=== PATIENT | female | born 1980 | race Caucasian/White ===

== ENCOUNTER 2019-06-09 16:18 | Inpatient (IN) ==
[2019-06-09] MEDS ORDERED: cefTRIAXone SODIUM 1,000 MG/50 ML BAG IV STA (17:12)
[2019-06-09 17:49] LABS: Basophils # (auto) 0.05 K/uL (0-0.2); Basophils % (auto) 0.6 %; Eosinophils # (auto) 0.23 K/uL (0-0.5); Eosinophils % (auto) 2.8 %; Hematocrit (blood only) 35.2 % (37-47); Hemoglobin 12.3 g/dL (12.0-16.0); Immature Granulocytes # (auto) 0.03 K/uL (0.00-0.02); Immature Granulocytes % (auto) 0.4 %; Lymphocytes # (auto) 1.47 K/uL (1.2-3.4); Lymphocytes % (auto) 18.2 %; Mean Corpuscular Hgb Conc 34.9 g/dL (32-36); Mean Corpuscular Volume 81.1 fL (80-100); Mean Platelet Volume 10.8 fL (7.4-10.4); Monocytes # (auto) 0.37 K/uL (0.11-0.59); Monocytes % (auto) 4.6 %; Neutrophils # (auto) 5.94 K/uL (1.4-6.5); Neutrophils % (auto) 73.4 %; Platelet Count 245 K/uL (130-400); RDW Coefficient of Variation 14.4 % (11.5-14.5); RDW Standard Deviation 42.9 fL (36.4-46.3); Red Blood Count 4.34 M/uL (4.2-5.4); White Blood Count 8.09 K/uL (4.8-10.8)
[2019-06-09 18:06] LABS: Albumin Level 3.8 gm/dl (3.4-5.0); BUN Creatinine Ratio 12.8 (10-20); Creatinine Clr Calc Pharmacy 63.7 ml/min; Est GFR (African American) 93.4; Est GFR (Non-African American) 80.6; Potassium 3.3 mmol/L (3.5-5.1)
[2019-06-09 18:08] LABS: Albumin Globulin Ratio 0.9 (0.9-2); Bilirubin,Total 0.3 mg/dl (0.2-1); Globulin 4.3 gm/dl (2.5-4.0); Total Protein 8.1 gm/dl (6.4-8.2)
[2019-06-09] MEDS ORDERED: POTASSIUM CHLORIDE 20 MEQ TABCR PO STA (19:49)
[2019-06-09] MEDS ORDERED: cefTRIAXone SODIUM 1000MG/50ML D5W IV ONE ×2 (20:04→21:14)
[2019-06-09] MEDS: SODIUM CHLORIDE 0.9% 1000ML 1,000 ML IV SCH ×2 (20:06→20:11)
--- NOTE | 2019-06-09 20:30 | History & Physical Report ---
Date of Service June 09, 2019 Assessment & Plan (1) Cellulitis: This is a 38-year-old female with PMH of PTSD and ADD who presents with rash on left upper back and was found to have cellulitis. -Completed 7 day course of Valtrex and Bactrim prior to arrival -Rash does not have vesicular appearance consistent with shingles -Was started on Rocephin in the ED -Please see Dr. Braswell's addendum for further assessment/ plan details (2) Anxiety: Denies PMH of anxiety but endorses PTSD, ADD -Please see Dr. Braswell's addendum for further assessment/ plan details History of Present Illness Chief Complaint: Rash, pain Primary Care Provider: NO PCP This is a 38-year-old female with PMH of PTSD and ADD who presents with rash on left upper back. Patient lives in [place] and was in the process of hitchhiking to [place] but developed worsening pain and subjective fever along the way and was dropped off at [facility]. Patient states she was diagnosed with shingles and a skin infection last week and was prescribed Valtrex and Bactrim. She took 7 of 14 days of both medications but is no longer taking them. Did not bring them with her today. Feels very anxious, has been trying to get a hold of back in [place] who is not answering phone. Is tearful and frustrated and is in a lot of pain from her rash. Does not take any home medications at this time. Feels warm and has chills. Rash on left upper back is painful and itchy. Denies any lightheadedness, visual changes, chest pain, palpitations, shortness of breath, nausea, vomiting, abdominal pain, dysuria, diarrhea or constipation. Patient denies history of anxiety. Denies any suicidal ideation or auditory/visual hallucinations. Denies alcohol or drug use. Quit smoking cigarettes 1 week ago. Allergies Allergy/AdvReac Type Severity Reaction Status Date / Time No Known Allergies Allergy Verified 06/09/19 18:01 Home Medications Home Medications Medication Instructions Recorded Confirmed Type acetaminophen [Tylenol Extra 500 - 1,000 mg PO DIRECTED PRN 06/09/19 06/09/19 History Strength] sulfamethoxazole-trimethoprim 1 tab PO DIRECTED 06/09/19 06/09/19 History [Bactrim DS] valacyclovir [Valtrex] 0 mg PO DIRECTED 06/09/19 06/09/19 History Past Med/Surg History Medical History ADD (attention deficit disorder) (Chronic) PTSD (post-traumatic stress disorder) (Chronic) Surgical History H/O section (Chronic) Family History Other Family history unknown Social History Preferred Language: Citizen Of [place] Communication Ability: Effective Extension Course Counselor Required: No Beliefs That Will Affect Care: None Current Living Situation: Spouse Current Living Situation Comment: lives with and his father, she states she has no other family Other Information That Helps Us Care for You: No Feels Safe at Home: Yes Safety Concerns: Afraid for Self Smoking Status: Former smoker Tobacco Type: cigarettes Do You Dip or Chew Tobacco: No Smoking End Date: quit 1 week ago Second Hand Exposure: Yes Tobacco Cessation Education Requested by Patient: No Hx Alcohol Use: Yes Alcohol type: beer Hx Substance Use: No Review of Systems Review of Systems: At least ten systems reviewed and negative except as noted in the HPI. Physical Exam Physical Exam: General Appearance: WD/WN, poorly groomed, very anxious and tearful Head: normocephalic, atraumatic Eyes: normal inspection, PERRL, EOMI ENT: hearing grossly normal, pharynx normal (dry mucous membranes) Neck: supple, no JVD, no adenopathy Respiratory/Chest: lungs clear to auscultation. No wheezes, rales or rhonci. No respiratory distress or accessory muscle use Cardiovascular: tachycardic, regular rhythm, no murmur, normal peripheral pulses, no BLE edema Abdomen/GI: normal bowel sounds, soft, non-tender to palpation Extremities/Musculoskelatal: Dime-sized lesion with overlying scab on left upper back, near medial scapula border with erythema and warmth extending to posterior neck and anteriorly to clavicle. No calf tenderness, normal capillary refill Neurologic/Psych: alert & oriented x 3, anxious, mood alternating from anxious and tearful to angry. During interview, patient removed her gown multiple times and punched herself in the side of head Skin: normal color, warm/dry, see above for further details Results & Data Vital Signs (Past 12 Hours) Vital Signs Temp Pulse Pulse Resp BP BP Pulse Ox 06/09/19 18:20 110 H 23 136/76 99 06/09/19 16:23 36.5 C 102 H 18 134/72 98 Laboratory Results Short CBC 06/09/19 Range/Units 17:39 WBC 8.09 (4.8-10.8) K/uL Hgb 12.3 (12.0-16.0) g/dL Hct 35.2 L (37-47) % Plt Count 245 (130-400) K/uL BMP 06/09/19 17:39 Sodium 135 L Potassium 3.3 L Chloride 101 Carbon Dioxide 25 BUN 12 Creatinine 0.91 Glucose 106 H Calcium 9.0 Liver Function 06/09/19 Range/Units 17:39 Total Bilirubin 0.3 (0.2-1) mg/dl AST 38 H (15-37) U/L ALT 47 (12-78) U/L Alkaline Phosphatase 137 H (45-117) U/L Albumin 3.8 (3.4-5.0) gm/dl Supervising Physician Co-Signing Physician Notes IM ATTENDING : Patient seen and examined. History obtained from patient . Preceding documentation by Ms. Aliyah Hart PA-C reviewed. In addition, patient gives history of possible tick exposure/bite from [place]. Patient complaining of headache, neck pain symptoms. No recent trauma as per patient. Patient very paranoid during exam. Speech/thoughts somewhat rambling and repetitive. Lyme screen IgM was positive. FINAL ASSESSMENT AND PLAN as follows : Possible Lyme meningitis No overt sepsis for now. Hypokalemia Past tobacco abuse Medical telemetry given tachycardia Diagnostic LP (patient refusing until her from [place] is contacted.) IV Ceftriaxone for now for presumptive Lyme meningitis. ID consult RE possible Lyme meningitis Replace potassium, check magnesium Social service to assist in contacting patient's family. DVT prophylaxis Lovenox subcu Full code
[2019-06-09 20:42] LABS: Lyme Ab IgG w/WB Rflx Negative (Negative)
[2019-06-09 20:47] LABS: Lyme Ab IgM w/WB Rflx Positive (Negative)
[2019-06-09] MEDS ORDERED: LORazepam 1 MG TAB SL STA (20:49)
[2019-06-09] MEDS ORDERED: cefTRIAXone SODIUM 2,000 MG/70 ML BAG IV STA (20:52)
[2019-06-09] MEDS ORDERED: cefTRIAXone SODIUM 1,000 MG in DEXTROSE 5% 50 ML IV STA (20:55)
[2019-06-09] MEDS ORDERED: KETOROLAC TROMETHAMINE 15 MG/ML VIAL IV ONE (20:56)
--- NOTE | 2019-06-09 21:22 | Emergency Department Note ---
Entered by Cj Johnson acting as a scribe for Nic Chakraborty DO History of Present Illness General Chief complaint: Mental Health Evaluation Stated complaint: SHINGLES, INFECTED AREA ON LEFT SHOULDER Source: patient History of Present Illness Provider complaint: Infection Onset (ago): day(s) 9 Location: back Radiation: non-radiation Pain Consistency: + constant and + other (Worsening) Maximum Pain Intensity: 9 Current Pain Intensity: 9 Relieved By: + none Exacerbated By: + none Associated symptoms: + rash and + shortness of breath The patient is a 38 year old female who presents to the Emergency Room with complaints of a worsening infection on her back that started about 9 days ago. She notes that the area is painful and she rates the pain as a 9/10. The patient states the rash started on her back and the redness has been increasing. The patient reports that she went to the hospital in [place], where she is from, and was diagnosed with shingles with a secondary infection. She was discharged with Bactrim and Valtrex. The patient is also complaining of shortness of breath, but does note she is a smoker. She denies any fevers, nausea, vomiting, diarrhea, or chest pain. The patient denies any past medical history. Denies any suicidal homicidal ideations. No auditory visual hallucinations. Home Medications Home Medications Medication Instructions Recorded Confirmed Type acetaminophen [Tylenol Extra 500 - 1,000 mg PO DIRECTED PRN 06/09/19 06/09/19 History Strength] sulfamethoxazole-trimethoprim 1 tab PO DIRECTED 06/09/19 06/09/19 History [Bactrim DS] valacyclovir [Valtrex] 0 mg PO DIRECTED 06/09/19 06/09/19 History Allergies Allergy/AdvReac Type Severity Reaction Status Date / Time No Known Allergies Allergy Verified 06/09/19 18:01 Past Med/Surg History Medical History ADD (attention deficit disorder) (Chronic) PTSD (post-traumatic stress disorder) (Chronic) Surgical History H/O section (Chronic) Family History Other Family history unknown Social History Feels Safe at Home: Yes Smoking Status: Former smoker Smoking End Date: quit 1 week ago Hx Alcohol Use: No Hx Substance Use: No Review of Systems See HPI for pertinent positives & negatives. and A total of 10 systems reviewed and were otherwise negative Physical Exam Vital Signs Vital Signs - 24 hr 06/09/19 16:23 06/09/19 18:20 Temperature 36.5 C Temperature Source Oral Sepsis Recent Fever Within 48 Hours No Sepsis Action Taken by Nursing No Action Required Pulse Rate 102 H Pulse Rate [Finger] 110 H Respiratory Rate 18 23 Respiratory Effort / Characteristics Non-Labored Spontaneous Respiratory Depth Normal Blood Pressure 134/72 Blood Pressure [Right Arm] 136/76 Blood Pressure Mean 92 Blood Pressure Mean [Right Arm] 96 Blood Pressure Position Sitting Pulse Oximetry 98 99 GENERAL: Sitting up in bed, alert, well appearing, well-nourished, no distress, non-toxic EYE EXAM: normal conjunctiva. OROPHARYNX: no exudate, no erythema, lips, buccal mucosa, and tongue normal and mucous membranes are moist NECK: supple, no nuchal rigidity, no adenopathy, non-tender LUNGS: Clear to auscultation. Normal chest wall mechanics HEART: no murmurs, S1 normal and S2 normal ABDOMEN: abdomen soft, non-tender, normo-active bowel, sounds, no masses, no rebound or guarding. BACK: Back is symmetrical on inspection and there is no deformity, no midline tenderness, no CVA tenderness. SKIN: No bruising. 27cm x 26cm area of erythema that tracks from her left distal clavicle just below the scapula. Central area is a 2 x 2cm scab with no induration. UPPER EXTREMITIES: upper extremities are grossly normal. LOWER EXTREMITIES: No pitting edema. NEURO EXAM: Normal sensorium, cranial nerves II-XII grossly intact, normal speech, no gross weakness of arms, no gross weakness of legs. Course ED COURSE: Vital signs were reviewed and showed mild tachycardia. The patients medical record was reviewed The above diagnostic studies were performed and reviewed. ED treatments and interventions as stated above. 170: The patient was evaluated in room B04B. A complete history and physical examination was performed. 1899: Upon reevaluation, the patient is resting in bed. I discussed my findings with the patient and she understands and agrees with the treatment plan. 1916: I spoke to Ashtyn Davis PAC under Dr. Michaelle Garcias about the patient's case. They will be accepting the patient for further evaluation. Based on the patients age, coexisting illnesses, exam and lab findings the decision to treat as an inpatient was made. The patient remained stable while under my care. The patient will be evaluated for further management. Consultations Consultation #1: I spoke to Ashtyn Davis PAC under Dr. Michaelle Garcias about the patient's case. They will be accepting the patient for further evaluation. Time: 19:17 Administered Medications Discontinued Medications Ceftriaxone Sodium (Rocephin) Confirm Administered Dose 1,000 mg IV .STK-MED ONE Stop: 06/09/19 20:05 Last Admin: 06/09/19 20:06 Dose: 1,000 mg Documented by: [id number] Ceftriaxone Sodium (Rocephin) 1,000 mg in 50 mls @ 100 mls/hr IV NOW STA Stop: 06/09/19 17:41 Last Admin: 06/09/19 20:06 Dose: Not Given Documented by: [id number] Sodium Chloride (Nss 1000ml) 1,000 mls @ 999 mls/hr IV .Q1H1M MOHAMUD Stop: 06/09/19 19:15 Last Admin: 06/09/19 20:11 Dose: Not Given Documented by: [id number] Admin: 06/09/19 20:06 Dose: Not Given Documented by: [id number] Potassium Chloride (Klor-Con M20) 40 meq PO NOW STA Stop: 06/09/19 19:50 Last Admin: 06/09/19 21:02 Dose: Not Given Documented by: [id number] Medical Decision Making Differential Diagnosis Differential diagnosis includes etiologies such as cellulitis, abscess, MRSA infection, DVT, necrotizing fasciitis, dermatitis, drug eruption, as well as others were entertained. Medical Records Attestation: I reviewed the patient's medical records. Home Medications Current Medication List: was personally reviewed by me Laboratory Data Attestation: I reviewed the patient's lab results. Result diagrams: 06/09/19 17:39 06/09/19 17:39 Lab Results 06/09/19 06/09/19 06/09/19 Range/Units 17:39 17:39 17:39 WBC 8.09 (4.8-10.8) K/uL RBC 4.34 (4.2-5.4) M/uL Hgb 12.3 (12.0-16.0) g/dL Hct 35.2 L (37-47) % MCV 81.1 (80-100) fL MCH 28.3 (25-34) pg MCHC 34.9 (32-36) g/dL RDW Std Deviation 42.9 (36.4-46.3) fL RDW Coeff of Carla 14.4 (11.5-14.5) % Plt Count 245 (130-400) K/uL MPV 10.8 H (7.4-10.4) fL Immature Gran % (Auto) 0.4 % Neut % (Auto) 73.4 % Lymph % (Auto) 18.2 % Stanton % (Auto) 4.6 % Eos % (Auto) 2.8 % Baso % (Auto) 0.6 % Immature Gran # (Auto) 0.03 H (0.00-0.02) K/uL Neut # (Auto) 5.94 (1.4-6.5) K/uL Lymph # (Auto) 1.47 (1.2-3.4) K/uL Stanton # (Auto) 0.37 (0.11-0.59) K/uL Eos # (Auto) 0.23 (0-0.5) K/uL Baso # (Auto) 0.05 (0-0.2) K/uL Sodium 135 L (136-145) mmol/L Potassium 3.3 L (3.5-5.1) mmol/L Chloride 101 (98-107) mmol/L Carbon Dioxide 25 (21-32) mmol/L Anion Gap 9.0 (3-11) BUN 12 (7-18) mg/dl Creatinine 0.91 (0.6-1.2) mg/dl Est Cr Clr Drug Dosing 63.7 ml/min Est GFR ( Amer) 93.4 Est GFR (Non-Af Amer) 80.6 BUN/Creatinine Ratio 12.8 (10-20) Glucose 106 H (70-99) mg/dl Calcium 9.0 (8.5-10.1) mg/dl Total Bilirubin 0.3 (0.2-1) mg/dl AST 38 H (15-37) U/L ALT 47 (12-78) U/L Alkaline Phosphatase 137 H (45-117) U/L Total Protein 8.1 (6.4-8.2) gm/dl Albumin 3.8 (3.4-5.0) gm/dl Globulin 4.3 H (2.5-4.0) gm/dl Albumin/Globulin Ratio 0.9 (0.9-2) Lipase 117 (73-393) U/L TSH 1.410 (0.300-4.500) uIu/ml Lyme Disease IgG Ab (Negative) Lyme Disease IgM Ab (Negative) 06/09/19 Range/Units 17:39 WBC (4.8-10.8) K/uL RBC (4.2-5.4) M/uL Hgb (12.0-16.0) g/dL Hct (37-47) % MCV (80-100) fL MCH (25-34) pg MCHC (32-36) g/dL RDW Std Deviation (36.4-46.3) fL RDW Coeff of Carla (11.5-14.5) % Plt Count (130-400) K/uL MPV (7.4-10.4) fL Immature Gran % (Auto) % Neut % (Auto) % Lymph % (Auto) % Stanton % (Auto) % Eos % (Auto) % Baso % (Auto) % Immature Gran # (Auto) (0.00-0.02) K/uL Neut # (Auto) (1.4-6.5) K/uL Lymph # (Auto) (1.2-3.4) K/uL Stanton # (Auto) (0.11-0.59) K/uL Eos # (Auto) (0-0.5) K/uL Baso # (Auto) (0-0.2) K/uL Sodium (136-145) mmol/L Potassium (3.5-5.1) mmol/L Chloride (98-107) mmol/L Carbon Dioxide (21-32) mmol/L Anion Gap (3-11) BUN (7-18) mg/dl Creatinine (0.6-1.2) mg/dl Est Cr Clr Drug Dosing ml/min Est GFR ( Amer) Est GFR (Non-Af Amer) BUN/Creatinine Ratio (10-20) Glucose (70-99) mg/dl Calcium (8.5-10.1) mg/dl Total Bilirubin (0.2-1) mg/dl AST (15-37) U/L ALT (12-78) U/L Alkaline Phosphatase (45-117) U/L Total Protein (6.4-8.2) gm/dl Albumin (3.4-5.0) gm/dl Globulin (2.5-4.0) gm/dl Albumin/Globulin Ratio (0.9-2) Lipase (73-393) U/L TSH (0.300-4.500) uIu/ml Lyme Disease IgG Ab Negative (Negative) Lyme Disease IgM Ab Positive A (Negative) Blood Pressure Blood Pressure Findings: Normal blood pressure MDM Narrative Patient is a 38-year-old female who presents the ER for left back erythema and pain. She notes that she has been on Bactrim for 7 days but has not improved. She notes that it is tender and warm. She admits that she was told that this was initially a viral infection but also placed on antibiotics. Patient does have a history of ADD and PTSD. She was acting intermittently erratic. I did asked her psychiatric career center advisor to evaluate her. IVs were established blood work was obtained. Patient was given oral Ativan to help her relax. She was given IV Rocephin. She is updated bedside. Labs showed no significant le ukocytosis or anemia. BMP with mild hypokalemia. LFTs and bilirubin was unremarkable. Lipase and TSH was normal. Discussed with the hospitalist in regards to observation for cellulitis. Impression & Plan Cellulitis, Anxiety Discharge Plan Visit Data Chief Complaint: Mental Health Evaluation Stated Complaint: SHINGLES, INFECTED AREA ON LEFT SHOULDER Other Complaint: Infection ED Provider: Nic Chakraborty Discharge Problem: Cellulitis, Anxiety Patient Disposition: Being Evaluated by Hospitalist Forms Stand Alone Forms: My [facility] Prescriptions Prescriptions: No Action valacyclovir [Valtrex] 500 mg Tablet PO DIRECTED RF: 0 sulfamethoxazole-trimethoprim [Bactrim DS] 800-160 mg Tablet 1 tab PO DIRECTED RF: 0 acetaminophen [Tylenol Extra Strength] 500 mg Tablet 500 - 1,000 mg PO DIRECTED PRN (Reason: Pain) RF: 0 Referrals Referrals: PCP,NO [Primary Care Provider] - The scribe's documentation has been prepared under my direction and personally reviewed by me in its entirety. I confirm that the note above accurately reflects all work, treatment, procedures, and medical decision making performed by me.
[2019-06-09] MEDS ORDERED: IBUPROFEN 200 MG TAB PO PRN (22:24)
[2019-06-09] MEDS ORDERED: LORazepam 0.25 MG/0.5 ML VIAL IV PRN (22:24)
[2019-06-09] MEDS ORDERED: PROMETHAZINE HCL 12.5 MG in SODIUM CHLORIDE 0.9% 50 ML IV PRN (22:24)
[2019-06-09] MEDS ORDERED: ACETAMINOPHEN 325 MG TAB PO PRN (22:24)
[2019-06-09] MEDS ORDERED: NSS + 20MEQ KCL 20 MEQ/1,000 ML BAG IV ONE (22:45)
[2019-06-09 22:55] LABS: Prothrombin Time 10.3 Seconds (9.0-12.0)
[2019-06-10 02:06] LABS: Magnesium 2.2 mg/dl (1.8-2.4)
[2019-06-10] MEDS ORDERED: LACTATED RINGER'S 1,000 ML IV ONE ×2 (03:42→06:40)
[2019-06-10] MEDS ORDERED: KETOROLAC TROMETHAMINE 15 MG/ML VIAL IV ONE (03:46)
[2019-06-10 04:42] LABS: Basophils # (auto) 0.02 K/uL (0-0.2); Basophils % (auto) 0.2 %; Eosinophils # (auto) 0.22 K/uL (0-0.5); Hematocrit (blood only) 29.8 % (37-47); Hemoglobin 10.2 g/dL (12.0-16.0); Immature Granulocytes # (auto) 0.03 K/uL (0.00-0.02); Immature Granulocytes % (auto) 0.3 %; Lymphocytes # (auto) 0.71 K/uL (1.2-3.4); Lymphocytes % (auto) 6.3 %; Mean Corpuscular Hgb Conc 34.2 g/dL (32-36); Mean Platelet Volume 10.4 fL (7.4-10.4); Monocytes % (auto) 1.8 %; Neutrophils # (auto) 10.06 K/uL (1.4-6.5); Neutrophils % (auto) 89.4 %; Platelet Count 237 K/uL (130-400); RDW Coefficient of Variation 14.4 % (11.5-14.5); RDW Standard Deviation 43.7 fL (36.4-46.3); Red Blood Count 3.59 M/uL (4.2-5.4); White Blood Count 11.24 K/uL (4.8-10.8)
[2019-06-10 05:00] LABS: Albumin Level 2.9 gm/dl (3.4-5.0); Calcium 7.9 mg/dl (8.5-10.1); Creatinine Clr Calc Pharmacy 60.2 ml/min; Est GFR (African American) 89.8; Est GFR (Non-African American) 77.5; Potassium 3.7 mmol/L (3.5-5.1)
[2019-06-10 05:07] LABS: Albumin Globulin Ratio 0.9 (0.9-2); Bilirubin,Total 0.2 mg/dl (0.2-1); Globulin 3.4 gm/dl (2.5-4.0); Total Protein 6.3 gm/dl (6.4-8.2)
[2019-06-10] MEDS ORDERED: SODIUM CHLORIDE 0.9% 1000ML 1,000 ML IV ONE (05:11)
[2019-06-10] MEDS ORDERED: VANCOMYCIN CONSULT ACTIVE PRN ×2 (05:12→05:14)
[2019-06-10] MEDS ORDERED: SODIUM CHLORIDE 0.9% IV STA (05:14)
[2019-06-10] MEDS ORDERED: VANCOMYCIN HCL IV STA (05:14)
--- NOTE | 2019-06-10 05:17 | Hospitalist Progress Note ---
Date of Service June 10, 2019 Subjective Fever spike, tachycardia noted in early a.m. 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 IVF Add IV Vancomycin to Ceftriaxone for now. Will relay to AM provider. Results & Data Vital Signs (Past 12 Hours) Vital Signs Temp Pulse Pulse Resp BP BP Pulse Ox 06/10/19 04:00 39.5 C H 117 H 24 92/61 L 97 06/10/19 00:14 110 H 06/09/19 22:26 36.9 C 101 H 20 111/72 99 06/09/19 21:45 82 20 101/72 99 06/09/19 18:20 110 H 23 136/76 99
[2019-06-10 05:27] LABS: Pregnancy Test, Serum Negative (Negative)
[2019-06-10] MEDS ORDERED: VANCOMYCIN HCL 1,250 MG in SODIUM CHLORIDE 0.9% 250 ML IV ONE (05:30)
--- NOTE | 2019-06-10 06:22 | XRay Report ---
XR chest 1V portable CLINICAL HISTORY: fever COMPARISON STUDY: No previous studies for comparison. FINDINGS: The cardiac and mediastinal contours are normal. There is no evidence of focal pulmonary co nsolidation. There is no evidence of failure. No pleural effusions are visualized.[ IMPRESSION: No active disease in the chest. Electronically signed by: Rene Rodney M.D. 06/10/2019 6:20 AM
[2019-06-10 06:25] LABS: Appearance Urine Clear (Clear); Bilirubin Urine Negative (Negative); Blood Urine Negative (Negative); Color Urine Yellow; Glucose Urine UA Negative (Negative); Ketones Urine Negative (Negative); Leukocyte Esterase Urine Negative (Negative); Nitrite Urine Negative (Negative); Protein Urine Negative (Negative); Specific Gravity Urine 1.017 (1.000-1.030); Urobilinogen Urine Negative (Negative); pH Urine 5.5 (4.5-7.5)
[2019-06-10 06:45] LABS: Amphetamines+Metham, Urine Pos (Neg); Barbiturates, Urine Neg (Neg); Benzodiazepine, Urine Neg (Neg); Cocaine, Urine Neg (Neg); MDMA (Ecstacy), Urine Neg (Neg); Methadone, Urine Neg (Neg); Opiate, Urine Neg (Neg); Phencyclidine, Urine Neg (Neg)
[2019-06-10] MEDS ORDERED: ENOXAPARIN INJ 30 MG/0.3 ML SYR SQ SCH (09:00)
--- NOTE | 2019-06-10 09:17 | Infectious Disease Consult ---
Date of Consultation June 10, 2019 Assessment & Plan (1) Lyme disease: 38-year-old female with eschar with erythematous rash on back with positive Lyme serology. Certainly this could represent atypical erythema migrans rash, but could be infected insect bite as well. Does not appear typic al for shingles. Has improving on ceftriaxone, would continue for now, await Western blot for Lyme and blood culture results. Will follow. (2) Cellulitis of back: History of Present Illness Reason for Consultation: Possible Lyme meningitis Attending Physician: Amalia Seay, DO History of Present Illness 38-year-old female with prior history of attention deficit disorder and posttraumatic stress disorder, who was in usual state of health until approximately 10 days ago when while hiking in [place] she had onset of painful pruritic erythematous rash on her left shoulder. She was diagnosed as having shingles, given Bactrim and Valtrex which she took 1 week of but continued to worsen, and eventually came here and was admitted for further management. She has complained of headaches and body aches, not sure whether she has had fever. Now found to have positive serology (screening) for Lyme disease. Has been started on IV ceftriaxone. Has shown some regression of her rash on her back. Blood cultures are pending. Allergies Allergy/AdvReac Type Severity Reaction Status Date / Time No Known Allergies Allergy Verified 06/09/19 18:01 Home Medications Home Medications Medication Instructions Recorded Confirmed Type acetaminophen [Tylenol Extra 500 - 1,000 mg PO DIRECTED PRN 06/09/19 06/09/19 History Strength] sulfamethoxazole-trimethoprim 1 tab PO DIRECTED 06/09/19 06/09/19 History [Bactrim DS] valacyclovir [Valtrex] 0 mg PO DIRECTED 06/09/19 06/09/19 History Patient History Medical History ADD (attention deficit disorder) (Chronic) PTSD (post-traumatic stress disorder) (Chronic) Surgical History H/O section (Chronic) Family History Other Family history unknown Social History Preferred Language: Maltese Communication Ability: Effective Kiln Tester Required: No Beliefs That Will Affect Care: None marital status: Current Living Situation: Spouse Current Living Situation Comment: lives with and his father, she states she has no other family Other Information That Helps Us Care for You: No Feels Safe at Home: Yes Safety Concerns: Afraid for Self Smoking Status: Former smoker Tobacco Type: cigarettes ; Do You Dip or Chew Tobacco: No ; Smoking End Date: quit 1 week ago ; Second Hand Exposure: Yes ; Tobacco Cessation Education Requested by Patient: No Hx Alcohol Use: Yes Alcohol type: beer Hx Substance Use: No Review of Systems Review of Systems: All systems reviewed & are unremarkable except as noted in HPI & below Physical Exam Constitutional: + ill appearing, + disheveled and + lethargic; no acute distress Eyes: PERRL, conjunctivae normal, anicteric sclerae ENMT: external ear and nose normal, oropharynx normal Neck: trachea midline, no thyromegaly neck nontender Respiratory: normal respiratory effort, lungs clear to auscultation normal percussion; does not use accessory muscles Cardiovascular: Rate/Rhythm: regular rate and regular rhythm Heart Sounds: normal S1 and normal S2; no gallop, no murmur and no cardiac rub Vessels: normal peripheral pulses; no JVD Gastrointestinal (Abdomen): normal bowel sounds, soft, nontender, no hepa tosplenomegaly Musculoskeletal: no cyanosis or clubbing, extremities motor strength 5/5 Spine: thoracic spine normal to inspection and lumbar spine normal to inspection; no cervical spinal tenderness Skin: normal turgor and + eschar (Large eschar on back with surrounding erythema with increased warmth and in) Neurologic: patellar DTR's 2+ bilat, sensation intact no focal motor deficits Psychiatric: A+Ox3, euthymic affect Orientation: cooperative Lymphatic: no cervical or axillary lymphadenopathy no inguinal lymphadenopathy Results & Data Vital Signs (Past 12 Hours) Vital Signs Temp Pulse Pulse Resp BP BP Pulse Ox 06/10/19 07:27 96 H 06/10/19 06:55 37.1 C 100 H 16 94/58 L 94 06/10/19 04:25 37.9 C H 06/10/19 04:00 39.5 C H 117 H 24 92/61 L 97 06/10/19 00:14 110 H 06/09/19 22:26 36.9 C 101 H 20 111/72 99 06/09/19 21:45 82 20 101/72 99 Laboratory Results Short CBC 06/09/19 06/10/19 Range/Units 17:39 04:24 WBC 8.09 11.24 H (4.8-10.8) K/uL Hgb 12.3 10.2 L (12.0-16.0) g/dL Hct 35.2 L 29.8 L (37-47) % Plt Count 245 237 (130-400) K/uL BMP 06/09/19 06/10/19 17:39 04:24 Sodium 135 L 134 L Potassium 3.3 L 3.7 Chloride 101 103 Carbon Dioxide 25 21 BUN 12 16 Creatinine 0.91 0.94 Glucose 106 H 172 H Calcium 9.0 7.9 L Liver Function 06/09/19 06/10/19 Range/Units 17:39 04:24 Total Bilirubin 0.3 0.2 (0.2-1) mg/dl AST 38 H 32 (15-37) U/L ALT 47 37 (12-78) U/L Alkaline Phosphatase 137 H 112 (45-117) U/L Albumin 3.8 2.9 L (3.4-5.0) gm/dl Urine 06/10/19 Range/Units 05:46 Urine Color Yellow Urine Appearance Clear (Clear) Urine pH 5.5 (4.5-7.5) Ur Specific [place] 1.017 (1.000-1.030) Urine Protein Negative (Negative) Urine Glucose (UA) Negative (Negative) Diagnostic Findings XR chest 1V portable CLINICAL HISTORY: fever COMPARISON STUDY: No previous studies for comparison. FINDINGS: The cardiac and mediastinal contours are normal. There is no evidence of focal pulmonary consolidation. There is no evidence of failure. No pleural effusions are visualized.[ IMPRESSION: No active disease in the chest. Electronically signed by: Rene Rodney M.D. 06/10/2019 6:20 AM Dictated: 06/10/19619 Transcribed: 06/10/19619 PG Care Time/CCT Total # of Minutes Spent Total Time Spent with Patient: Total time spent is greater than 50% in coordination of care (as documented) at patient's floor/unit and/or counseling patient:
--- NOTE | 2019-06-10 15:53 | Pharmacy Report ---
Pharmacy Abx Initial Consult - Date of Service June 10, 2019 - Pharmacy Dosing Scope Date of Consult: 06/10 Consultation requested by: Dr. Braswell Pharmacy is consulted to initiate vancomycin IV/PO dosing therapy, order appropriate labs and adjust drug dose/frequency. - Subjective The patient is a 38 year old F admitted on 06/09/19 20:55. - Objective Height: 5 ft 3 in Weight: 46.5 kg Vital Signs (Past 12hrs): Vital Signs Temp Pulse Pulse Resp BP BP Pulse Ox 06/10/19 14:56 36.8 C 104 H 20 108/65 97 06/10/19 11:14 37.2 C 85 16 94/58 L 98 06/10/19 07:27 96 H 06/10/19 06:55 37.1 C 100 H 16 94/58 L 94 06/10/19 04:25 37.9 C H 06/10/19 04:00 39.5 C H 117 H 24 92/61 L 97 Lab Results (24hrs): Laboratory Tests (24 Hours) 06/10/19 06/10/19 06/09/19 04:24 04:24 17:39 WBC 11.24 H Neut # (Auto) 10.06 H Creatinine 0.94 0.91 Est Cr Clr Drug Dosing 60.2 63.7 06/09/19 17:39 WBC 8.09 Neut # (Auto) 5.94 Creatinine Est Cr Clr Drug Dosing Micro Results: 06/10/19 04:37 Aerobic Blood Culture - Pending Blood Anaerobic Blood Culture - Pending 06/10/19 04:24 Aerobic Blood Culture - Pending Blood Anaerobic Blood Culture - Pending - Risk Factors for Resistance * Antimicrobial use within the last 90 days: bactrim - Assessment & Plan Assessment 38 year old F with recent history of hiking, developed pruritic rash on left shoulder, diagnosed as shingles outpatient- started on bactrim and valtrex. Worsened over the week. Lymes screening positive IgM. Started on ceftriaxone 2 gm IV q24 h and vancomycin empirically for a possible cellulitis. Did discuss vancomycin with ID- to continue for now, likely 24 hours, therefore levels not currently ordered Plan Vancomycin IV * Estimated PK Parameters: Hardik 0.054 hr-1, t1/2 12.7 hr * Loading dose: 1250 mg (27 mg/kg) * Maintenance dose: 750 mg IV (16 mg/kg) every 14 hours * Goal trough level for [indication] : 10 to 20 mcg/mL * Trough not currently ordered due to expected short duration- will order if expected duration change Pharmacy will continue to follow and will adjust dose/frequency as necessary. Thank you.
[2019-06-10] MEDS: KETOROLAC TROMETHAMINE 15 MG/ML VIAL IV PRN (16:00)
[2019-06-10] MEDS ORDERED: ALPRAZolam 0.5 MG TABLET PO STA (16:50)
[2019-06-10] MEDS ORDERED: NAPROXEN 250 MG TAB PO STA (16:50)
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
[2019-06-10] MEDS ORDERED: VANCOMYCIN HCL 750 MG in SODIUM CHLORIDE 0.9% 250 ML IV SCH (20:00)
[2019-06-10] MEDS: cefTRIAXone SODIUM 2,000 MG in DEXTROSE 5% 50 ML IV SCH (20:39)
[2019-06-11 07:57] LABS: Basophils # (auto) 0.04 K/uL (0-0.2); Basophils % (auto) 0.7 %; Eosinophils # (auto) 0.54 K/uL (0-0.5); Eosinophils % (auto) 9.6 %; Hemoglobin 9.9 g/dL (12.0-16.0); Immature Granulocytes # (auto) 0.02 K/uL (0.00-0.02); Immature Granulocytes % (auto) 0.4 %; Lymphocytes # (auto) 2.19 K/uL (1.2-3.4); Mean Corpuscular Volume 84.3 fL (80-100); Mean Platelet Volume 10.5 fL (7.4-10.4); Monocytes # (auto) 0.37 K/uL (0.11-0.59); Monocytes % (auto) 6.6 %; Neutrophils # (auto) 2.46 K/uL (1.4-6.5); Neutrophils % (auto) 43.7 %; Platelet Count 262 K/uL (130-400); RDW Coefficient of Variation 14.8 % (11.5-14.5); RDW Standard Deviation 45.7 fL (36.4-46.3); Red Blood Count 3.56 M/uL (4.2-5.4); White Blood Count 5.62 K/uL (4.8-10.8)
[2019-06-11 08:29] LABS: BUN Creatinine Ratio 8.3 (10-20); Creatinine Clr Calc Pharmacy 95.8 ml/min; Est GFR (African American) 135.7; Est GFR (Non-African American) 117.1; Potassium 3.8 mmol/L (3.5-5.1)
[2019-06-11] MEDS: VANCOMYCIN HCL 500 MG in SODIUM CHLORIDE 0.9% 250 ML IV SCH ×2 (10:25→22:08)
[2019-06-11] MEDS ORDERED: ALPRAZolam 0.5 MG TABLET PO ONE (15:40)
[2019-06-11] MEDS: NICOTINE 14 MG/24 HR PATCH TD SCH (15:54)
[2019-06-11] MEDS: KETOROLAC TROMETHAMINE 15 MG/ML VIAL IV PRN (15:56)
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
[2019-06-11] MEDS: cefTRIAXone SODIUM 2,000 MG in DEXTROSE 5% 50 ML IV SCH (20:53)
[2019-06-12] MEDS: LORazepam 0.25 MG/0.5 ML VIAL IV PRN ×2 (00:19→10:49)
[2019-06-12 05:42] LABS: Hematocrit (blood only) 32.1 % (37-47); Hemoglobin 10.6 g/dL (12.0-16.0); Mean Corpuscular Volume 84.7 fL (80-100); Mean Platelet Volume 11.2 fL (7.4-10.4); Platelet Count 279 K/uL (130-400); RDW Coefficient of Variation 15.1 % (11.5-14.5); RDW Standard Deviation 47.2 fL (36.4-46.3); Red Blood Count 3.79 M/uL (4.2-5.4)
[2019-06-12] MEDS: NICOTINE 14 MG/24 HR PATCH TD SCH (08:05)
[2019-06-12] MEDS ORDERED: VANCOMYCIN TROUGH ONE (09:30)
[2019-06-12] MEDS: VANCOMYCIN HCL 500 MG in SODIUM CHLORIDE 0.9% 250 ML IV SCH (10:19)
[2019-06-12] MEDS: DOXYCYCLINE HYCLATE 100 MG CAP PO SCH ×2 (10:49→20:30)
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
[2019-06-12] MEDS ORDERED: LORazepam 0.5 MG TAB PO PRN (19:44)
[2019-06-12] MEDS: hydrOXYzine HCl 10 MG TAB PO PRN (20:27)
[2019-06-12] MEDS: NICOTINE 7 MG/24 HR TDSY TD PRN (20:28)
[2019-06-12] MEDS: cefTRIAXone SODIUM 2,000 MG in DEXTROSE 5% 50 ML IV SCH (20:32)
[2019-06-12] MEDS ORDERED: LORazepam 0.5 MG/1 ML VIAL IV ONE (22:30)
[2019-06-13] MEDS: DOXYCYCLINE HYCLATE 100 MG CAP PO SCH ×2 (07:57→20:54)
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
[2019-06-13] MEDS: hydrOXYzine HCl 10 MG TAB PO PRN (18:38)
[2019-06-13] MEDS: NICOTINE 7 MG/24 HR TDSY TD PRN (19:26)
[2019-06-13] MEDS: cefTRIAXone SODIUM 2,000 MG in DEXTROSE 5% 50 ML IV SCH (20:54)
[2019-06-13 23:28] LABS: Amphetamine Urine, Confirm 3460 NG/ML (CUTOFF=250); Marijuana Quant, GCMS Urine 27 NG/ML (CUTOFF=5); Methamphetamine, Ur Confirm 9020 NG/ML (CUTOFF=250)
[2019-06-14] MEDS: DOXYCYCLINE HYCLATE 100 MG CAP PO SCH (08:47)
--- NOTE | 2019-06-14 14:54 | Infectious Disease Progress Nt ---
Date of Service June 14, 2019 Assessment & Plan (1) Lyme disease: 38-year-old female with eschar with erythematous rash on back with positive Lyme serology. Certainly this could represent atypical erythema migrans rash, but could be infected insect bite as well. Does not appear typical for shingles. Has improving on ceftriaxone, will consider transitioning to oral cephalexin along with doxycycline tomorrow with continues to improve. Await Western blot for Lyme. (2) Cellulitis of back: Subjective Patient offering little interaction. States the pain is slightly better. No fever or chills. Western blot still pending. Review of Systems Review of Systems: All systems reviewed & are unremarkable except as noted in HPI & below Physical Exam Constitutional: + disheveled and + lethargic; no acute distress Eyes: PERRL, conjunctivae normal, anicteric sclerae ENMT: external ear and nose normal, oropharynx normal Neck: trachea midline, no thyromegaly neck nontender Respiratory: normal respiratory effort, lungs clear to auscultation normal percussion; does not use accessory muscles Cardiovascular: Rate/Rhythm: regular rate and regular rhythm Heart Sounds: normal S1 and normal S2; no gallop, no murmur and no cardiac rub Vessels: normal peripheral pulses; no JVD Gastrointestinal (Abdomen): normal bowel sounds, soft, nontender, no hepatosplenomegaly Musculoskeletal: no cyanosis or clubbing, extremities motor strength 5/5 Spine: thoracic spine normal to inspection and lumbar spine normal to inspection; no cervical spinal tenderness Skin: normal turgor and + eschar (Significant improvement in eschar with surrounding erythema) Neurologic: patellar DTR's 2+ bilat, sensation intact no focal motor deficits Psychiatric: A+Ox3, euthymic affect Orientation: cooperative Lymphatic: no cervical or axillary lymphadenopathy no inguinal lymphadenopathy Results & Data Vital Signs (Past 12 Hours) Vital Signs Temp Pulse Pulse Resp BP Pulse Ox 06/14/19 07:35 71 06/14/19 07:32 36.7 C 67 16 121/81 99 06/14/19 03:00 36.7 C 88 20 113/76 100 Laboratory Results Laboratory Results - last 48 hr 06/10/19 05:46 U Amphetamines Confirm 3460 A U Methamphetamin Confrm 9020 A U Marijuana THC Carboxy 27 A Diagnostic Findings Microbiology 06/10/19 04:37 Blood Aerobic Blood Culture - Preliminary No growth in Aerobic bottle after 48 hours. 06/10/19 04:37 Blood Anaerobic Blood Culture - Final 06/10/19 04:24 Blood Aerobic Blood Culture - Preliminary No growth in Aerobic bottle after 48 hours. 06/10/19 04:24 Blood Anaerobic Blood Culture - Preliminary No growth in Anaerobic bottle after 48 hours. PG Care Time/CCT Total # of Minutes Spent Total Time Spent with Patient: Total time spent is greater than 50% in coordination of care (as documented) at patient's floor/unit and/or counseling patient:
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
[2019-06-16 04:35] LABS: 18KDIGG Band REACTIVE (NONREACTIVE); 23KDIGG Band REACTIVE (NONREACTIVE); 23KDIGM Band REACTIVE (NONREACTIVE); 28KDIGG Band NONREACTIVE (NONREACTIVE); 30KDIGG Band NONREACTIVE (NONREACTIVE); 39KDIGG Band REACTIVE (NONREACTIVE); 39KDIGM Band NONREACTIVE (NONREACTIVE); 41KDIGG Band REACTIVE (NONREACTIVE); 41KDIGM Band REACTIVE (NONREACTIVE); 45KDIGG Band NONREACTIVE (NONREACTIVE); 58KDIGG Band NONREACTIVE (NONREACTIVE); 66KDIGG Band REACTIVE (NONREACTIVE); 93KDIGG Band NONREACTIVE (NONREACTIVE); Lyme Antibodies, WB IgG POSITIVE (NEGATIVE); Lyme Antibodies, WB IgM POSITIVE (NEGATIVE)
== END 2019-06-14 17:12 | disposition left against medical advice (07) | DRG 603 ==
LOC: ED 16:18 → 2W 20:55 → SUATTDRO 20:55 → 2W 21:45